=== PATIENT | male | born 1980 | race Caucasian/White ===

== ENCOUNTER → 2019-03-13 12:36 | Outpatient (CLI) | payer OTHER, SELFPAY ==
[2019-03-13 13:45] VITALS: PULSE 72; PULSE 78
--- NOTE | 2019-03-13 13:55 | CA_ITS ---
APPROVED REPORT EXAM: Comprehensive 2D, Doppler, and color-flow Echocardiogram Orthopedics Pediatric Physician: Janelle Velazquez, RT(R) Ht: 5 ft 9 in Wt: 180lbs BSA: 1.98 BP: 120/74 mmHg Indications: CP, Smoker, palpitations, fatigue, [place], family history of HD, Hx [place] 04/2018 related to stress no stents placed 2D Dimensions LVOT 1.76 cm (M/F) 1.5-2.5 M-Mode Dimensions RVDd 1.75 cm (0.9-2.6) LVDd 4.80 cm (3.5-5.7) LVDs 3.89 cm (3.5-5.7) IVSd 1.14 cm (0.6-1.1) PWd 0.84 cm (0.6-1.1) EF (Teich) 39.10% FS 19.00% EDV (Teich) 107.50 mL ESV (Teich) 65.50 mL LV Diastology E/A Ratio 1.21 Mitral Valve MV A Velocity 71.00 (40-130 cm/s) Left Ventricle Left atrium is normal size, left ventricle is normal size, visually estimated ejection fraction 55% with no regional wall motion abnormality, diastolic parameters are within normal range. Right Ventricle Right atrium and right ventricular normal size and contractility. Aortic Valve Aortic valve is not well visualized, is a possibility to bicuspid aortic valve, there is no aortic stenosis, there is aortic insufficiency present which is difficult to quantify. If clinically indicated transesophageal echocardiogram is recommended. Mitral Valve Mitral valve is grossly normal, there is mild mitral regurgitation. Tricuspid Valve Tricuspid valve is grossly normal, there is mild tricuspid regurgitation. Pulmonic Valve Pulmonic valve is poorly visualized. Great Vessels Aortic root appears to be mildly enlarged. Pericardium No significant pericardial effusion noted. Conclusion 1. Normal left ventricular size, preserved left ventricular systolic function, visually estimated ejection fraction 55% with no regional wall motion abnormality, diastolic parameters are within normal range. 2. Aortic valve is not well visualized, the possibility of bicuspid aortic valve, aortic root is qualitatively mildly enlarged, there is aortic insufficiency present which is difficult to quantify, if clinically indicated transesophageal echocardiogram is recommended. 3. Mild mitral and tricuspid regurgitation. 4. No significant pericardial effusion noted. Electronically signed by : Dru Grayson, 03/13/2019 19:44:28
--- NOTE | 2019-03-13 15:08 | XR_ITS ---
PROCEDURE: XR CHEST 2V CLINICAL HISTORY: DIFFUSING CAPACITY, Tobacco use COMPARISON: No exams were available for comparison FINDINGS: The cardiomediastinal silhouette and pulmonary vascularity are within normal limits. The lungs are clear without infiltrates, suspicious nodules, or pleural effusions. No acute bony abnormalities. IMPRESSION: No acute findings. Dictated by: Calos Gupta MD 03/13/2019 17:19 Electronically signed by Calos Gupta MD in [place] 03/13/2019 17:19
== END ==
PROVIDERS: PCP Family Medicine; Visit Provider Orthopaedic Surgery
DX: J18.9 Pneumonia, unspecified organism (principal); J42 Unspecified chronic bronchitis
CPT/HCPCS: 71046; 93306; 94060; 94640; 94727; 94729

== ENCOUNTER → 2021-02-21 10:19 | Outpatient (CLI) | payer OTHER, SELFPAY | PROVIDERS: PCP Family Medicine; Visit Provider Chiropractor | DX: R06.82 Tachypnea, not elsewhere classified (principal) | CPT/HCPCS: 94060 ==